=== PATIENT | female | born 1945 | race Caucasian/White ===

== ENCOUNTER 2022-05-04 18:45 | Observation (INO) | payer OTHER ==
[~2022-05-04] VITALS: Ht 160 cm; Wt 103.0 kg
[2022-05-04] MEDS ORDERED: SODIUM CHLORIDE 0.9% 500 ML IV ONE (19:00)
[2022-05-04 20:20] LABS: Basophils # (auto) 0 10 ^3/uL (0-0.2); Basophils % (auto) 0.2 % (0.0-2.0); Eosinophils # (auto) 0 10 ^3/uL (0-0.8); Eosinophils % (auto) 0.1 % (0.0-7.0); Hematocrit 35.7 % (36.0-46.0); Hemoglobin 11.3 g/dL (12.2-16.2); Lymphocytes # (auto) 0.9 10 ^3/uL (0.4-5.4); Lymphocytes % (auto) 9.4 % (10.0-50.0); Mean Corpuscular Hgb Conc. 31.7 g/dL (32.0-36.0); Monocytes # (auto) 0.9 10 ^3/uL (0-1.3); Monocytes % (auto) 9.1 % (0.0-12.0); Neutrophils # (auto) 7.7 10 ^3/uL (1.6-8.6); Neutrophils % (auto) 81.2 % (37.0-80.0); Red Cell Distribution Width 15.8 % (11.8-14.3); White Blood Cell 9.4 10^3/uL (4.4-10.8)
[2022-05-04 20:37] LABS: Albumin 2.6 g/dL (3.4-5.0); BUN/Creatinine Ratio 20.2; Potassium 3.8 mmol/L (3.5-5.1)
[2022-05-04 20:40] LABS: Bilirubin, Total 0.3 mg/dL (0.2-1.0)
[2022-05-05] MEDS ORDERED: MORPHINE SULFATE INJ 2 MG/ml SYRG IV PRN (01:30)
[2022-05-05] MEDS ORDERED: DEXTROSE (50%) 50ML SYRG IV ONE (01:30)
[2022-05-05] MEDS ORDERED: SOD CHL 0.45% 1,000 ML IV ONE (01:30)
[2022-05-05] MEDS ORDERED: NITROGLYCERIN 0.4 MG SL TAB SL PRN (01:30)
[2022-05-05 01:50] VITALS: BP 148/71
[2022-05-05 05:45] LABS: Urine Bacteria MANY /hpf (None Seen); Urine Blood 2+ /uL (Negative); Urine Specific Gravity 1.016 (1.001-1.035); Urine WBC 88 /hpf (0 - 5); Urine WBC Clumps PRESENT /hpf (None Seen)
[2022-05-05 05:54] LABS: Basophils # (auto) 0.1 10 ^3/uL (0-0.2); Basophils % (auto) 0.7 % (0.0-2.0); Eosinophils # (auto) 0.1 10 ^3/uL (0-0.8); Eosinophils % (auto) 0.8 % (0.0-7.0); Hematocrit 36.2 % (36.0-46.0); Hemoglobin 11.5 g/dL (12.2-16.2); Lymphocytes # (auto) 1.4 10 ^3/uL (0.4-5.4); Lymphocytes % (auto) 13.7 % (10.0-50.0); Mean Corpuscular Hgb Conc. 31.8 g/dL (32.0-36.0); Monocytes # (auto) 1.1 10 ^3/uL (0-1.3); Monocytes % (auto) 10.5 % (0.0-12.0); Neutrophils # (auto) 7.5 10 ^3/uL (1.6-8.6); Neutrophils % (auto) 74.3 % (37.0-80.0); Nucleated Red Blood Cells % 0.1 %; Red Blood Cells 4.26 10^6/uL (4.0-5.20); Red Cell Distribution Width 15.9 % (11.8-14.3); White Blood Cell 10.2 10^3/uL (4.4-10.8)
[2022-05-05 06:02] LABS: INR 1.14 (0.9-1.15)
[2022-05-05 06:14] LABS: Albumin 2.5 g/dL (3.4-5.0); Calcium 8.8 mg/dL (8.5-10.1); Potassium 4.3 mmol/L (3.5-5.1)
[2022-05-05 06:20] LABS: BUN/Creatinine Ratio 19.3; Bilirubin, Total 0.4 mg/dL (0.2-1.0); Total Protein 6.3 g/dL (6.4-8.2)
[2022-05-05] MEDS ORDERED: InsuLIN REG 1unit/0.01ml Soln (100units/ml) SC ONE (07:00)
[2022-05-05] MEDS ORDERED: ACCU-CHEK COMFORT CURVE STRIP VI ONE (07:00)
[2022-05-05] MEDS: ALBUTEROL SULF 2.5 MG/0.5ML(0.5%) NEB SOLN NEB SCH ×3 (07:19→18:00)
[2022-05-05] MEDS: IPRATROPIUM BROM 0.5 MG/2.5ML INH SOL NEB SCH ×3 (07:19→18:00)
[2022-05-05] MEDS ORDERED: CIPROFLOXACIN 400MG/200ML 200 ML IV SCH (10:00)
[2022-05-05] MEDS ORDERED: CEFD300C2 PO (13:21)
[2022-05-05] MEDS ORDERED: MECL25TA18 PO (13:23)
[2022-05-05] MEDS ORDERED: MECLIZINE HCL 25 MG TAB PO PRN (13:30)
[2022-05-05 14:00] VITALS: BP 138/61
== END 2022-05-05 15:15 | disposition home or self-care (01) ==
LOC: EDUNIT# 18:45 → ER 18:45 → EDBD 18:45 → TELE 05-05 01:43
PROVIDERS: ADMIT Internal Medicine; ATTEND Internal Medicine
DX: R55 Syncope and collapse (principal); Z20.822 Contact with and (suspected) exposure to COVID-19; N39.0 Urinary tract infection, site not specified; E11.9 Type 2 diabetes mellitus without complications; E78.5 Hyperlipidemia, unspecified; I10 Essential (primary) hypertension; J44.9 Chronic obstructive pulmonary disease, unspecified; K51.90 Ulcerative colitis, unspecified, without complications; I21.4 Non-ST elevation (NSTEMI) myocardial infarction; M81.0 Age-related osteoporosis without current pathological fracture; I21.A1 Myocardial infarction type 2; R42 Dizziness and giddiness; R53.1 Weakness; Z87.891 Personal history of nicotine dependence; Z79.899 Other long term (current) drug therapy; Z98.890 Other specified postprocedural states
CPT/HCPCS: 36415; 70450; 70551; 74176; 80053; 81001; 82270; 82962; 83605; 84484; 85025; 85610; 87040; 87045; 87426; 87427; 93005; 93306; 93886; 94640; 96361; 96365; 96372; 99285; G0378; J0744; J1815; J7644; J8597